=== PATIENT | male | born 1990 | race Two or more races ===

== ENCOUNTER 2018-10-29 08:36 | Emergency (ER) | payer SELFPAY ==
[2018-10-29 08:42] VITALS: BP 125/70
[2018-10-29] MEDS ORDERED: KETOROLAC TROMETHAMINE 60 MG/2 ML SDV IM ONE (09:16)
[2018-10-29] MEDS ORDERED: PREDNISONE 20 MG TABLET PO ONE (09:16)
--- NOTE | 2018-10-29 09:19 | ER Document Report ---
HPI - HPI Patient complains to provider of: gout flare Time Seen by Provider: 10/29/18 09:09 Onset: Yesterday Onset/Duration: Sudden Quality of pain: Achy Severity: Mild Pain Level: 2 Context: 28-year-old male presents the emergency department with complaints of left elbow pain with a history of gout. He reports he has had gout since he is 20 years old. Reports he had some alcohol recently and believes his diet made a flareup. [place]. He is out of his medications. No complaints of fever vomiting diarrhea. Denies trauma. 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 Family History: CAD Patient has suicidal ideation: No Patient has homicidal ideation: No - Past Medical History Cardiac Medical History: Reports: Hx Hypertension Pulmonary Medical History: Reports: Hx Asthma Surgical Hx: Negative Vertical Provider Document - CONSTITUTIONAL Agree With Documented VS: Yes Exam Limitations: No Limitations General Appearance: WD/WN, No Apparent Distress - HEENT HEENT: Atraumatic, Normocephalic - NECK Neck: Supple - RESPIRATORY Respiratory: No Respiratory Distress - CARDIOVASCULAR Cardiovascular: Regular Rate - MUSCULOSKELETAL/EXTREMETIES Musculoskeletal/Extremeties: Tender - left elbow ttp, unable to fully extend arm, elbow warm, no erythema, good radial pulse, good cap refill - NEURO Level of Consciousness: Awake, Alert, Appropriate Motor/Sensory: No Motor Deficit - DERM Integumentary: Warm, Dry Adult Front & Back Diagram: 1 - c/o pain, warm Course - Re-evaluation Re-evalutation: 10/29/18 09:24 28-year-old male with reports of gout flare. Reports gout since he has been 20. Recently had alcohol and now is experiencing a gout flare. Is out of his medications. Denies trauma. Patient complains of pain in the left elbow unable to fully extend the arm without pain. No other complaints such as fever vomiting diarrhea. Patient was treated with the Toradol steroids and indomethacin. Instructed to monitor his diet and follow-up with primary care provider when he reaches his destination. He verbalized understanding. Dictation of this chart was performed using voice recognition software; therefore, there may be some unintended grammatical errors. - Vital Signs Vital signs: Temp Pulse Resp BP Pulse Ox 98.0 F 60 18 125/70 95 10/29/18 08:41 10/29/18 08:41 10/29/18 08:41 10/29/18 08:41 10/29/18 08:41 Discharge - Discharge Clinical Impression: Gout attack Qualifiers: Gout site: elbow Gout etiology: unspecified cause Laterality: left Qualified Code(s): M10.9 - Gout, unspecified Condition: Stable Disposition: HOME, SELF-CARE Instructions: Gout ([facility]), Gout Diet ([facility]), Steroid Medication, Toradol Injection ([facility]) Additional Instructions: *You have been evaluated for gout *monitor your diet *Take medication as prescribed *Follow up with a primary care provider within one week *Return to ED for worsening condition, changes, needs Prescriptions: Indomethacin [Indocin 50 mg Capsule] 50 mg PO TID #30 capsule Prednisone [Deltasone 10 mg Tablet] 10 mg PO ASDIR PRN #15 tablet PRN Reason:
== END 2018-10-29 09:42 | disposition home or self-care (01) ==
LOC: EDBD 08:36 → ER 08:36
DX: M10.9 Gout, unspecified (principal); M25.522 Pain in left elbow; I10 Essential (primary) hypertension; J45.909 Unspecified asthma, uncomplicated; Z87.891 Personal history of nicotine dependence
CPT/HCPCS: 99283; 96372; J1885; J7512

== ENCOUNTER 2019-04-08 07:45 | Emergency (ER) | payer SELFPAY ==
[2019-04-08 07:51] VITALS: BP 136/72
[2019-04-08] MEDS ORDERED: KETOROLAC TROMETHAMINE 60 MG/2 ML SDV IM ONE (08:53)
[2019-04-08] MEDS ORDERED: METHYLPREDNISOLONE INJ 125 MG/2 ML SDV IM ONE (08:53)
--- NOTE | 2019-04-08 08:56 | ER Document Report ---
ED General - General Chief Complaint: Foot Pain Stated Complaint: LEFT ANKLE PAIN Time Seen by Provider: 04/08/19 08:33 Primary Care Provider: [facility] [Provider Group] - Follow up in 3-5 days YAJAIRA GALVAN MD [ACTIVE STAFF] - Follow up in 3-5 days Notes: 28-year-old male presents with left ankle pain and swelling that has been ongoing for 2 days. Patient states it is a gout flareup and he has had similar symptoms since the age of 20. Patient states it always happens to his left ankle. Patient denies any injury, fever, or any other places of pain. Patient states he had a gout flareup last month but sometimes he can go months without having 1. Patient states he is not on a special diet or on maintenance medicines for gout. - Related Data Allergies/Adverse Reactions: ceftriaxone [From Rocephin] Allergy (Verified 04/08/19 07:58) Past Medical History - Social History Smoking Status: Current Some Day Smoker Drug Abuse: Marijuana Family History: CAD Patient has suicidal ideation: No Patient has homicidal ideation: No - Past Medical History Cardiac Medical History: Reports: Hx Hypertension Pulmonary Medical History: Reports: Hx Asthma Renal/ Medical History: Denies: Hx Peritoneal Dialysis Review of Systems - Review of Systems Notes: Constitutional: Negative for fever. HENT: Negative for sore throat. Eyes: Negative for visual changes. Cardiovascular: Negative for chest pain. Respiratory: Negative for shortness of breath. Gastrointestinal: Negative for abdominal pain, vomiting or diarrhea. Genitourinary: Negative for dysuria. Musculoskeletal: Positive for left ankle pain. Negative for back pain. Skin: Negative for rash. Neurological: Negative for headaches, weakness or numbness. 10 point ROS negative except as marked above and in HPI. Physical Exam - Vital signs Vitals: Temp Pulse Resp BP Pulse Ox 97.4 F 52 L 18 136/72 H 99 04/08/19 07:49 04/08/19 07:49 04/08/19 07:49 04/08/19 07:49 04/08/19 07:49 - Notes Notes: GENERAL: Well-appearing, well-nourished and in no acute distress. HEAD: Atraumatic, normocephalic. EYES: Extraocular movements intact, sclera anicteric, conjunctiva are normal. NECK: Normal range of motion, supple without lymphadenopathy or JVD. EXTREMITIES: Normal range of motion, no pitting or edema. No clubbing or cyanosis. Left ankle: Mild swelling, distal pedal pulses 2+. No erythema. No calor. NEUROLOGICAL: Cranial nerves II through XII grossly intact. Normal speech, normal gait. PSYCH: Normal mood, normal affect. SKIN: Warm, Dry, normal turgor, no rashes or lesions noted. Course - Re-evaluation Re-evalutation: 04/08/19 nontoxic, well-appearing 28-year-old male presents for gout flareup to left ankle. Patient denies any injury or fever. Patient is afebrile, non- tachycardic. Ankle is mildly swollen full range of motion. No erythema. Distal pedal pulses 2+. Patient given injection of Toradol and steroids and sent home with prescription for indomethacin. Patient given instructions on gout diet. Patient also given close follow-up with PCP. Return precautions g iven. Patient voices understanding and agrees with plan of care. - Vital Signs Vital signs: Temp Pulse Resp BP Pulse Ox 97.4 F 52 L 18 136/72 H 99 04/08/19 08:35 04/08/19 08:35 04/08/19 08:35 04/08/19 08:35 04/08/19 08:35 Discharge - Discharge Clinical Impression: Gout Qualifiers: Gout site: ankle Gout etiology: unspecified cause Chronicity: acute Laterality: left Qualified Code(s): M10.9 - Gout, unspecified Condition: Stable Disposition: HOME, SELF-CARE Instructions: Gout ([facility]), Gout Diet ([facility]) Additional Instructions: Take indomethacin as prescribed. Please follow-up with a primary care doctor or 1 of the clinics listed in 3 to 5 days. Return to ER for any worsening symptoms, including fever, increased swelling, redness to the area, increased pain, chest pain, shortness of breath, nausea/vomiting, abdominal pain, or any o ther symptoms that are concerning to you. Prescriptions: Indomethacin [Indocin 50 mg Capsule] 50 mg PO Q8 #15 capsule Referrals: YAJAIRA GALVAN MD [ACTIVE STAFF] - Follow up in 3-5 days [facility] [Provider Group] - Follow up in 3-5 days
== END 2019-04-08 09:10 | disposition home or self-care (01) ==
LOC: ER 07:45
DX: M10.9 Gout, unspecified (principal); M25.572 Pain in left ankle and joints of left foot; F17.200 Nicotine dependence, unspecified, uncomplicated; I10 Essential (primary) hypertension; J45.909 Unspecified asthma, uncomplicated
CPT/HCPCS: 99283; 96372; J1885; J2930